=== PATIENT | male | born 2000 | race Caucasian/White ===

== ENCOUNTER 2024-06-17 11:30 | Outpatient (RCR) | payer OTHER, SELFPAY ==
--- NOTE | 2024-03-18 14:03 | OT.OP.EVAL ---
Visit Care Team Role Provider Type James Gaffney Attending Provider Non-Staff Family Provider Primary Care Provider Referring Provider Specialty: Medical Address: [address] [place] [address], [place], [address] Email: Occupational Therapy Initial Evaluation OT Outpatient Adult Evaluation Start: 03/18/24 13:32 Freq: Status: Active Protocol: Document 03/18/24 13:33 FER (Rec: 03/18/24 14:01 FER [id number]) General Information - Adult Visit Number 08/25 Plan of Care Dates 03/18/24 - 05/27/24 Insurance Information [facility] 12 visits Visit Start Date 03/18/24 Visit Start Time 10:40 Visit Stop Time 11:30 Treatment Setting Outpatient Care Note Type Initial Evaluation Referring Physician James Gaffney Reason for Referral 2nd digit extensor indicis tendinopathy, R wrist pain Identification Confirmed Yes Identification Confirmed By name Patient Questionnaires Quick Dash UE Score 11.36 Quick Dash UE Impairment 1 to 19% Impaired (Score 1-19) Quick Dash W&S Score work 12.5, sport/art 31.25 Quick Dash Work and Sport Impairment 20 to 39% Impaired (Score 20- 39) Goals Objective Measurements B wrist/forearm strength 5/5 statistical clerk strength: L 110, 100, 101 (avg 103.7#); R 110, 100, 106 (105.3# avg) pincer: L 6#, R 11 # R: DRUJ ballottement test +; DRUJ shift test pronation and supination -; ulnar snuff box test +; LT ballottement + Short Term Goals 1. Pt will be I with RICE. 2. Pt will report pain following tx at no more than 4 /10 3. Pt will increase R dominant statistical clerk strength by 5#. 4. Pt will report improvement in QuickDash sports/performing of at least 5 point improvement. Group Home Goals 1. Pt will demonstrate full flexion of L index finger without increase in c/o pain. 2. Pt will being to play his guitar for 30 minutes without increased pain. 3. Pt will report pain at 2/10 or less with activity. 4. Pt will be I with HEP Assessment/Plan Patient Response Excellent Rehabilitation Potential Excellent Impairments Identified Body Mechanics,Flexibility, Functional Activities,Pain, Weakness,Range of Motion, Stiffness,Swelling,Soft Tissue Mobility Treatment Assessment Pt is 23 yo M with c/o R writ pain and L index finger pain ( see scanned pain assessment body diagram). Pt rates pain at 5/10 at worse and 1/10 at rest. Pt f/x both bones of his R distal forearm approximately 15 years ago, but has no other significant Pmhx. Pt was casted following fx and had no additional treatment following. Pt reports over the last two years he?s had more pain in R wrist. Pt reports occasionally he has a popping with wrist extension that is painful. He has crepitation with R wrist circumduction. Pt has a R wrist brace that he wears when he is working out or when his wrist is bothering him. Pt reports that his left index finger hurts all the time ?though the amount varies significantly? . Pt?s pain is in 2nd digit MP and extends distally toward PIP. Pt reports his finger ?locks? in somewhat extended position (not in flexed position). 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 He is able to keep his wrists neutral but reports that he is not able to modify his work space. Pt is R hand dominant. Pt is unable to play his guitar for more than 10-15 minutes without pain and reports being limited at working on his car due to pain with twisting and pressure. Pt is tender on palpation of the tendon of extensor indicis muscle as well as passive flexion of L index finger. Pt keeps his L index finger guarded throughout evaluation. See objective measures above for R wrist special tests. Pt presents with instability of the DRUJ of R dominant wrist. Pt has to braces at home and has agreed to bring them to first treatment for recommendations. OT also recommended splinting for L index finger. Splinting options discussed in detail. Pt verbalizes understanding. Skilled OT services are appropriate to address pt deficits, promoting return to pain free functional use, educated on RICE, recommend activity modification, and provide appropriate ther ex/ act. Length of treatment (weeks) 10 Plan of Care Start Date 03/18/24 Plan of Care End Date 05/27/24 Treatment Frequency Once a Week Treatment Duration 45 Minutes Therapeutic Contents Active Range of Motion,Client Education,Functional Activities,Home Exercise Program,Joint Protection, Manual Therapy,Education, Neuromuscular Re-Education, Therapeutic Activities, Therapeutic Exercises, Modalities Modalities As Needed Types of Modalities Contrast Bath Additional Types of Modalities MHP/CP Patient Instruction Home Exercise Program
--- NOTE | 2024-03-25 12:41 | OT.OP.TRT ---
Visit Care Team Role Provider Type James Gaffney Attending Provider Non-Staff Family Provider Primary Care Provider Referring Provider Specialty: Medical Address: [address] [place] [address], [place], [address] Email: Occupational Therapy Treatment Note OT Outpatient Treatment Note - Adult Start: 03/18/24 13:32 Freq: Status: Active Protocol: Document 03/25/24 11:15 FER (Rec: 03/25/24 09:36 FER [id number]) OT Outpatient Adult Treatment Note Session Time Visit Start Date 03/25/24 Visit Start Time 11:15 Visit Stop Time 12:00 Visit Information Visit Number 09/25 Plan of Care Dates 03/18/24 - 05/27/24 Insurance Information [facility] 12 visits Setting Treatment Setting Outpatient Care Visit Type Note Type Treatment Note - Subjective Identification Type Name Identification Reconciled With Medical Record Chief Complaint(s) Loss of Motion/Stiffness,Pain Effect on Activity - Objective Objective Measurements Pt reports that he ordered compression gloves. He reports that they have been helping and allowing him to type. He also reports that he has been trying to rest his hands to allow for healing, and has overall noticed less pain since doing so. Pt reports that his x-ray showed his R ulna is shorter. Short Term Goals 1. Pt will be I with RICE. 2. Pt will report pain following tx at no more than 4 /10 3. 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 4. Pt will report improvement in QuickDash sports/performing of at least 5 point improvement. Retirement Goals 1. Pt will demonstrate full flexion of L index finger without increase in c/o pain. 2. Pt will being to play his guitar for 30 minutes without increased pain. 3. Pt will report pain at 2/10 or less with activity. 4. Pt will be I with HEP - Exercises 2 Descriptor isometric: R wrist pronation 5 second holds x10 reps R wrist flexion 5 second holds x 10 reps R wrist ulnar deviation 5 second holds x10 reps 1 Descriptor tendon glides L hand x15 reps, with min vc/demonstration Manual Therapy Manual Therapy transverse friction massage L extensor indicis to tolerance grade III joint traction mobilization L index MP/PIP/ DIP for flex and extension - Assessment Patient Response to Treatment Excellent Rehabilitation Potential Excellent Impairments Identified Body Mechanics,Flexibility, Functional Activities,Pain, Weakness,Range of Motion, Stiffness,Swelling,Soft Tissue Mobility Assessment of Improvement Pt c/o stiffness and discomfort with L digit composite flexion, following transverse massage, so OT initiated joint mobilization. Pt was then able to complete full flexion and extesnion of L 3rd digit without any complaints of stiffness or discomfort. Pt tolerated transverse massage well as well. Pt requires min vc/ demonstration to perform tendon glides smoothly. Pt forgot to bring in his R wrist braces, OT has asked pt to bring to next treatment. OT educated pt on use of isometric exercises to assist in approximating the DRUJ. Pt performs with min vcs/tcs to perform with correct form. OT will continue to review these and eventually issue them as HEP. Pt continues to be appropriate for skilled OT services per established POC. Reviewed with Patient/Caregiver Goals,Progress Being Made Patient/Caregiver Understanding Excellent - Plan Therapy Recommendations Continue with Current Program Amount of Therapy Recommended 2-3 Months Frequency of Treatment Once a Week Therapeutic Contents Active Range of Motion,Client Education,Functional Activities,Home Exercise Program,Joint Protection, Manual Therapy,Education, Neuromuscular Re-Education, Therapeutic Activities, Therapeutic Exercises, Modalities Types of Modalities Contrast Bath Additional Types of Modalities MHP/CP
--- NOTE | 2024-04-01 12:32 | OT.OP.TRT ---
Visit Care Team Role Provider Type James Gaffney Attending Provider Non-Staff Family Provider Primary Care Provider Referring Provider Specialty: Medical Address: [address] [place] [address], [place], [address] Email: Occupational Therapy Treatment Note OT Outpatient Treatment Note - Adult Start: 03/18/24 13:32 Freq: Status: Active Protocol: Document 04/01/24 11:35 FER (Rec: 04/01/24 12:32 FER [id number]) OT Outpatient Adult Treatment Note Session Time Visit Start Date 04/01/24 Visit Start Time 11:25 Visit Stop Time 12:10 - Subjective Identification Type Name Identification Reconciled With Medical Record Observations ?I don?t have pain in my finger, it?s just a burning sensation.? Pt reports that his x-ray on 02/26 showed Negative ulnar variant and dorsal angulation Chief Complaint(s) Loss of Motion/Stiffness,Pain Effect on Activity - Objective Short Term Goals 1. Pt will be I with RICE. MET 04/01/24 2. Pt will report pain following tx at no more than 4 /10 3. Pt will increase R dominant microbiology quality control technician strength by 5#. 4. Pt will report improvement in QuickDash sports/performing of at least 5 point improvement. Retirement Goals 1. Pt will demonstrate full flexion of L index finger without increase in c/o pain. 2. Pt will being to play his guitar for 30 minutes without increased pain. 3. Pt will report pain at 2/10 or less with activity. 4. Pt will be I with HEP - Exercises 5 Descriptor digit blocking: L MP, PIP, DIP flexion and extension x10 each position 4 Descriptor digit extension with green web x30 3 Descriptor free weight 3# wrist flexion x10 2 Descriptor isometric: R wrist pronation 5 second holds x10 reps R wrist flexion 5 second holds x 10 reps R wrist ulnar deviation 5 secon holds x10 reps 1 Descriptor tendon glides L hand x15 reps, with min vc/demonstration Manual Therapy Manual Therapy transverse friction massage L extensor indicis to tolerance grade III joint traction mobilization L index MP/PIP/ DIP for flex and extension - Assessment Patient Response to Treatment Excellent Rehabilitation Potential Excellent Impairments Identified Body Mechanics,Flexibility, Functional Activities,Pain, Weakness,Range of Motion, Stiffness,Swelling,Soft Tissue Mobility Assessment of Improvement Pt brought his store bought wrist brace in for OT to view. OT recommended that pt order a wrist widget instead. OT recommends a wear schedule of daily for at least 6 weeks, to allow his ligaments time to tighten (due to + DRUJ ballottement test). Pt verbalizes understanding. Pt has bought a splint for his L hand, but has not been wearing it because it is difficult during his work. OT recommended pt trying to wear at night. Pt is wearing a compression glove during work and reports that it is helping . Pt with visible muscle shaking and fatigue with L index composite flexion following digit blocking. Pt continues to be appropriate per skilled OT services. Cont per established POC. Reviewed with Patient/Caregiver Goals,Progress Being Made Patient/Caregiver Understanding Excellent - Plan Therapy Recommendations Continue with Current Program Amount of Therapy Recommended 2-3 Months Frequency of Treatment Once a Week Therapeutic Contents Active Range of Motion,Client Education,Functional Activities,Home Exercise Program,Joint Protection, Manual Therapy,Education, Neuromuscular Re-Education, Therapeutic Activities, Therapeutic Exercises, Modalities Types of Modalities Contrast Bath Additional Types of Modalities MHP/CP
--- NOTE | 2024-04-08 12:20 | OT.OP.TRT ---
Visit Care Team Role Provider Type James Gaffney Attending Provider Non-Staff Family Provider Primary Care Provider Referring Provider Specialty: Medical Address: [address] [place] [address], [place], [address] Email: Occupational Therapy Treatment Note OT Outpatient Treatment Note - Adult Start: 03/18/24 13:32 Freq: Status: Active Protocol: Document 04/08/24 11:21 FER (Rec: 04/08/24 11:22 FER [id number]) OT Outpatient Adult Treatment Note Session Time Visit Start Date 04/08/24 Visit Start Time 11:21 Visit Stop Time 12:10 Visit Information Visit Number 11/23 Plan of Care Dates 03/18/24 - 05/27/24 Insurance Information [facility] 12 visits Setting Treatment Setting Outpatient Care Visit Type Note Type Treatment Note - Subjective Identification Type Name Identification Reconciled With Medical Record Observations Pt reports that he was very sore the day following last tx . Pt ordered a wrist widget, but found it uncomfortable. He is now wearing a bullseye style brace. Pt reports c/o stiffness in L index finger and increased wrist popping on R side since wearing wrist brace. Chief Complaint(s) Loss of Motion/Stiffness,Pain Effect on Activity - Objective Short Term Goals 1. Pt will be I with RICE. MET 04/01/24 2. Pt will report pain following tx at no more than 4 /10 MET 04/08/24 3. Pt will increase R dominant designer/writer strength by 5#. 4. Pt will report improvement in QuickDash sports/performing of at least 5 point improvement. [employer] Assembly Machine Tender Goals 1. Pt will demonstrate full flexion of L index finger without increase in c/o pain. 2. Pt will being to play his guitar for 30 minutes without increased pain. 3. Pt will report pain at 2/10 or less with activity. 4. Pt will be I with HEP - Exercises 5 Descriptor digit blocking: L MP, PIP, DIP flexion and extension x15 each position 4 Descriptor digit extension with green web x30 [place] 3 Descriptor R: free weight 3# x15: wrist flexion (neutral position) wrist extension wrist radial and ulnar deviation pronation 2 Descriptor isometric: R wrist pronation 5 second holds x10 reps R wrist flexion 5 second holds x 10 reps R wrist ulnar deviation 5 secon holds x10 reps 1 Descriptor tendon glides L hand x15 reps; no vcs necessary Manual Therapy Manual Therapy transverse friction massage L extensor indicis to tolerance grade III joint traction mobilization L index MP/PIP/ DIP for flex and extension - Assessment Patient Response to Treatment Excellent Rehabilitation Potential Excellent Impairments Identified Body Mechanics,Flexibility, Functional Activities,Pain, Weakness,Range of Motion, Stiffness,Swelling,Soft Tissue Mobility Progress Towards Goals Good Progress Assessment of Overall Progress Improving Assessment of Improvement OT discussed wrist brace wearing schedule. OT recommends wearing all the time, loosening at night, for at least 6 weeks to promote approximation of laxity present during DRUJ assessment . Pt verbalizes understanding. Pt tolerated increased strengthening on R side with use of free weights, positioning chosen based on avoiding pts symptoms especially popping. Pt reports L finger feeling less stiff following joint mobilization. Pt has met STG #2 and promotes progress toward remaining goals. Cont per established POC. Reviewed with Patient/Caregiver Progress Being Made - Plan Therapy Recommendations Continue with Current Program Amount of Therapy Recommended 2-3 Months Frequency of Treatment Once a Week Length of Session 45 Minutes Therapeutic Contents Active Range of Motion,Client Education,Functional Activities,Home Exercise Program,Joint Protection, Manual Therapy,Education, Neuromuscular Re-Education, Therapeutic Activities, Therapeutic Exercises, Modalities Types of Modalities Contrast Bath Additional Types of Modalities MHP/CP
--- NOTE | 2024-05-06 12:20 | OT.OP.TRT ---
Visit Care Team Role Provider Type James Gaffney Attending Provider Non-Staff Family Provider Primary Care Provider Referring Provider Specialty: Medical Address: [address] [place] [address], [place], [address] Email: Occupational Therapy Treatment Note OT Outpatient Treatment Note - Adult Start: 03/18/24 13:32 Freq: Status: Active Protocol: Document 05/06/24 12:09 LELESAMUEL (Rec: 05/06/24 12:20 [email or web address] [id number]) OT Outpatient Adult Treatment Note Session Time Visit Start Date 05/06/24 Visit Start Time 10:45 Visit Stop Time 11:30 Visit Information Visit Number 12/23 Plan of Care Dates 03/18/24 - 05/27/24 Insurance Information [facility] 12 visits Setting Treatment Setting Outpatient Care Visit Type Note Type Treatment Note - Subjective Identification Type Name Identification Reconciled With Medical Record Observations Pt reports that his L hand has been fine. A time or two it got where it felt stiffer, but I just stopped what I was doing. Pt reports that his R wrist has only bothered me 1 or 2 days in the last month. He has been consistently wearing bulls eye styled brace on his R wrist for 4 weeks and will continue for at least two more weeks per OT recommendation. Pt reports that the popping is occurring less often but now seems to build up and be one larger pop. Pt reports that he is no longer having pain on his R index finger. Pt has not tried playing his guitar in the last month. Chief Complaint(s) Loss of Motion/Stiffness,Pain Effect on Activity - Objective Short Term Goals 1. Pt will be I with RICE. MET 04/01/24 2. Pt will report pain following tx at no more than 4 /10 MET 04/08/24 3. 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 4. Pt will report improvement in QuickDash sports/performing of at least 5 point improvement. Computer Support Technician Goals 1. Pt will demonstrate full flexion of L index finger without increase in c/o pain. MET 05/06/24 2. Pt will being to play his guitar for 30 minutes without increased pain. 3. Pt will report pain at 2/10 or less with activity. MET 9/ 23/24 4. Pt will be I with HEP - Exercises 6 Descriptor isometric: L index MP, PIP, and DIP isolated extension at each joint for 3-5 second holds x10 reps each. 5 Descriptor digit blocking: L MP, PIP, DIP flexion and extension x15 each position 4 Descriptor digit extension with green web x30 [place] 3 Descriptor R: free weight 3# 10x2 each: wrist flexion (neutral position) wrist extension wrist radial and ulnar deviation pronation Manual Therapy Manual Therapy grade III joint traction mobilization L index MP/PIP/ DIP for flex and extension - Assessment Patient Response to Treatment Excellent Rehabilitation Potential Excellent Impairments Identified Body Mechanics,Flexibility, Functional Activities,Pain, Weakness,Range of Motion, Stiffness,Swelling,Soft Tissue Mobility Progress Towards Goals Good Progress Assessment of Overall Progress Improving Assessment of Improvement Pt tolerates addition of isometrics for L index without any complaints of pain or stiffness. Pt tolerated maira additional set of strengthening on R side with use of free weights, positioning chosen based on avoiding pts symptoms especially popping. Pt continues to report L finger feeling less stiff following joint mobilization. Pt has met LTG #1 and 3 and promotes progress toward remaining goals. Cont per established POC. Reviewed with Patient/Caregiver Progress Being Made Patient/Caregiver Understanding Excellent - Plan Therapy Recommendations Continue with Current Program Amount of Therapy Recommended 2-3 Months Frequency of Treatment Once a Week Length of Session 45 Minutes Therapeutic Contents Active Range of Motion,Client Education,Functional Activities,Home Exercise Program,Joint Protection, Manual Therapy,Education, Neuromuscular Re-Education, Therapeutic Activities, Therapeutic Exercises, Modalities Types of Modalities Contrast Bath Additional Types of Modalities MHP/CP
--- NOTE | 2024-05-20 08:15 | OT.OP.TRT ---
Visit Care Team Role Provider Type James Gaffney Attending Provider Non-Staff Family Provider Primary Care Provider Referring Provider Specialty: Medical Address: [address] [place] [address], [place], [address] Email: Occupational Therapy Treatment Note OT Outpatient Treatment Note - Adult Start: 03/18/24 13:32 Freq: Status: Active Protocol: Document 05/20/24 07:30 FER (Rec: 05/20/24 07:29 FER [id number]) OT Outpatient Adult Treatment Note Session Time Visit Start Date 05/20/24 Visit Start Time 07:30 Visit Stop Time 08:13 Visit Information Visit Number 01/23 Plan of Care Dates 03/18/24 - 05/27/24 Insurance Information [facility] 12 visits Setting Treatment Setting Outpatient Care Visit Type Note Type Treatment Note - Subjective Identification Type Name Identification Reconciled With Medical Record Observations Pt reports that his index finger has not been stiff since last treatment. He reports his R wrist has been sore, but otherwise no complaints. Pt reports that he played his guitar for about 10 minutes and did not notice any difficutly with respect to his L index finger and his R wrist. He reports that he is out of practice. Chief Complaint(s) Loss of Motion/Stiffness,Pain Effect on Activity - Objective Objective Measurements pincer: L 11# R 12# Short Term Goals 1. Pt will be I with RICE. MET 04/01/24 2. Pt will report pain following tx at no more than 4 /10 MET 04/08/24 3. Pt will increase R dominant senior attorney strength by 5#. 4. Pt will report improvement in QuickDash sports/performing of at least 5 point improvement. Detention Goals 1. Pt will demonstrate full flexion of L index finger without increase in c/o pain. MET 05/06/24 2. Pt will being to play his guitar for 30 minutes without increased pain. 3. Pt will report pain at 2/10 or less with activity. MET 4. Pt will be I with HEP - Treatment 1 Descriptor proprioception: wiffle ball with marbles L CW and CCW x30sec each flex bar (yellow) wobble R 60 seconds Exercises 7 Descriptor towel gather and extending x10 6 Descriptor isometric: L index MP, PIP, and DIP isolated extension at each joint for 3-5 second holds x10 reps each. 5 Descriptor digit blocking: L MP, PIP, DIP flexion and extension x15 each position 4 Descriptor digit extension with green web x30 [place] 3 Descriptor R: free weight 4# 10x2 each: wrist flexion wrist extension wrist radial and ulnar deviation pronation Manual Therapy Manual Therapy grade III joint traction mobilization L index MP/PIP/ DIP for flex and extension - Assessment Patient Response to Treatment Excellent Rehabilitation Potential Excellent Impairments Identified Body Mechanics,Flexibility, Functional Activities,Pain, Weakness,Range of Motion, Stiffness,Swelling,Soft Tissue Mobility Progress Towards Goals Good Progress Assessment of Overall Progress Improving Assessment of Improvement Pt tolerated increase in weight for R wrist strengthening and addition of focused ROM with L hand towel activity as well as introduction of proprioceptive feedback today. Pt denies any pain complaints during tx and reports mild stiffness in L index finger. Pt demonstrates increased pinch strength on L index. Pt makes progress toward LTG #2. Cont per established POC. Reviewed with Patient/Caregiver Progress Being Made Patient/Caregiver Understanding Excellent - Plan Therapy Recommendations Continue with Current Program Amount of Therapy Recommended 2-3 Months Frequency of Treatment Once a Week Length of Session 45 Minutes Therapeutic Contents Active Range of Motion,Client Education,Functional Activities,Home Exercise Program,Joint Protection, Manual Therapy,Education, Neuromuscular Re-Education, Therapeutic Activities, Therapeutic Exercises, Modalities Types of Modalities Contrast Bath Additional Types of Modalities MHP/CP
--- NOTE | 2024-05-27 12:41 | OT.OP.TRT ---
Visit Care Team Role Provider Type James Gaffney Attending Provider Non-Staff Family Provider Primary Care Provider Referring Provider Specialty: Medical Address: [address] [place] [address], [place], [address] Email: Occupational Therapy Treatment Note OT Outpatient Treatment Note - Adult Start: 03/18/24 13:32 Freq: Status: Active Protocol: Document 05/27/24 11:19 FER (Rec: 05/27/24 12:41 FER [id number]) OT Outpatient Adult Treatment Note Session Time Visit Start Date 05/27/24 Visit Start Time 11:15 Visit Stop Time 12:00 Visit Information Visit Number 02/22 Plan of Care Dates 03/18/24 - 05/27/24 Insurance Information [facility] 12 visits Setting Treatment Setting Outpatient Care Visit Type Note Type Treatment Note - Subjective Identification Type Name Identification Reconciled With Medical Record Observations Pt reports that he was doing some task, that he doesn't remember, and he felt as though he wasn't able to use his L index finger and had to force it. Pt reported that this was painful and he stopped the activity when he could, but he was at work so he had some limitation there. Pt took off his bulls-eye splint due to six weeks of wearing schedule approximately last Monday. Pt reports he's had increased soreness/ pain in R wrist since d/c. Chief Complaint(s) Loss of Motion/Stiffness,Pain Effect on Activity - Objective Objective Measurements DRUJ R ballottement test + Short Term Goals 1. Pt will be I with RICE. MET 04/01/24 2. Pt will report pain following tx at no more than 4 /10 MET 04/08/24 3. 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 4. Pt will report improvement in QuickDash sports/performing of at least 5 point improvement. Longterm Goals 1. Pt will demonstrate full flexion of L index finger without increase in c/o pain. MET 05/06/24 2. Pt will being to play his guitar for 30 minutes without increased pain. 3. Pt will report pain at 2/10 or less with activity. MET 4. Pt will be I with HEP - Exercises 7 Descriptor towel gather and extending x10 6 Descriptor isometric: L index MP, PIP, and DIP isolated extension at each joint for 3-5 second holds x10 reps each. 5 Descriptor digit blocking: L MP, PIP, DIP flexion and extension x15 each position 3 Descriptor R: free weight 4# 10x; 3# x10x each: wrist flexion wrist extension wrist radial and ulnar deviation pronation/supination farmers carry 5# x 60 seconds Manual Therapy Manual Therapy grade III joint traction mobilization L index MP/PIP/ DIP for flex and extension - Assessment Patient Response to Treatment Excellent Rehabilitation Potential Excellent Impairments Identified Body Mechanics,Flexibility, Functional Activities,Pain, Weakness,Range of Motion, Stiffness,Swelling,Soft Tissue Mobility Progress Towards Goals Good Progress Assessment of Overall Progress Improving Assessment of Improvement Pt has no change with respect to DRUJ instability following 6 week application of bullseye brace. Pt reports decreased popping and pain with wearing brace, but continued constant wearing will lead to weakness. Because of this, OT suggested that pt reapply bullseye brace during work tasks and working out and to remove it at rest and during sleep for now. Pt verbalizes understanding. Pt tolerated R wrist weighted activities without brace on today (pt did not have it with him) but weight was decreased for second set due to pt feeling sore. Pt tolerated index strengthening well today but with reports of fatigue following. OT assures pt that this is to be expected. Cont per established POC. Reviewed with Patient/Caregiver Progress Being Made Patient/Caregiver Understanding Excellent - Plan Therapy Recommendations Continue with Current Program Amount of Therapy Recommended 2-3 Months Frequency of Treatment Once a Week Length of Session 45 Minutes Therapeutic Contents Active Range of Motion,Client Education,Functional Activities,Home Exercise Program,Joint Protection, Manual Therapy,Education, Neuromuscular Re-Education, Therapeutic Activities, Therapeutic Exercises, Modalities Types of Modalities Contrast Bath Additional Types of Modalities MHP/CP
--- NOTE | 2024-06-03 12:48 | OT.OPPN ---
Current Diagnoses Pain in right wrist (06/03/24) Pain in left finger(s) (06/03/24) OT Progress Note OT Outpatient Treatment Note - Adult Start: 03/18/24 13:32 Freq: Status: Active Protocol: Document 06/03/24 11:18 FER (Rec: 06/03/24 12:01 FER [id number]) OT Outpatient Adult Treatment Note Session Time Visit Start Date 06/03/24 Visit Start Time 11:15 Visit Stop Time 12:00 Visit Information Visit Number 03/25 Plan of Care Dates 03/18/24 - 05/27/24 Insurance Information [facility] 12 visits Setting Treatment Setting Outpatient Care Visit Type Note Type Treatment Note - Subjective Identification Type Name Identification Reconciled With Medical Record Observations Pt reports that his L index finger has done fine this last week. He does not recall any instances of having to force. Pt reports that he is wearing his bullseye spint during work (approximatley 12 hours). Pt reports that his wrist feels like it is always on the verge of popping. Chief Complaint(s) Loss of Motion/Stiffness,Pain Effect on Activity - Objective Short Term Goals 1. Pt will be I with RICE. MET 04/01/24 2. Pt will report pain following tx at no more than 4 /10 MET 04/08/24 3. 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 4. Pt will report improvement in QuickDash sports/performing of at least 5 point improvement. Half-Way Goals 1. Pt will demonstrate full flexion of L index finger without increase in c/o pain. MET 05/06/24 2. Pt will being to play his guitar for 30 minutes without increased pain. 3. Pt will report pain at 2/10 or less with activity. MET 4. Pt will be I with HEP - Exercises 7 Descriptor towel gather and extending x10 6 Descriptor isometric: composite index flexion into extension hook position into extension 1st DI x10 each 4 Descriptor digit extension with blue web x30 [place] 3 Descriptor R: free weight 4# 10x2 each: wrist flexion wrist extension wrist radial and ulnar deviation pronation/supination isometric weight hold in pronation 30 sec x2 isometric weight hold in supination 30 sec x2 farmers carry 5# x 60 seconds - Assessment Patient Response to Treatment Excellent Rehabilitation Potential Excellent Impairments Identified Body Mechanics,Flexibility, Functional Activities,Pain, Weakness,Range of Motion, Stiffness,Swelling,Soft Tissue Mobility Progress Towards Goals Good Progress Assessment of Overall Progress Improving Reviewed with Patient/Caregiver Progress Being Made Patient/Caregiver Understanding Excellent - Plan Therapy Recommendations Continue with Current Program Amount of Therapy Recommended 2-3 Months Frequency of Treatment Once a Week Length of Session 45 Minutes Therapeutic Contents Active Range of Motion,Client Education,Functional Activities,Home Exercise Program,Joint Protection, Manual Therapy,Education, Neuromuscular Re-Education, Therapeutic Activities, Therapeutic Exercises, Modalities Types of Modalities Contrast Bath Additional Types of Modalities MHP/CP If you are in agreement with this Plan of Care, please return a signed and dated copy. I have reviewed this Plan of Care and certify that the skilled therapy services above are required to meet the patient?s needs. Physician Signature Date Printed Name and Credentials Clinical Instructor Signature Printed Name and Credentials
--- NOTE | 2024-06-03 12:55 | OT.OP.TRT ---
Visit Care Team Role Provider Type James Gaffney Attending Provider Non-Staff Family Provider Primary Care Provider Referring Provider Specialty: Medical Address: [address] [place] [address], [facility], [place], [address] Email: Occupational Therapy Treatment Note OT Outpatient Treatment Note - Adult Start: 03/18/24 13:32 Freq: Status: Active Protocol: Document 06/03/24 11:18 FER (Rec: 06/03/24 12:01 FER [id number]) OT Outpatient Adult Treatment Note Session Time Visit Start Date 06/03/24 Visit Start Time 11:15 Visit Stop Time 12:00 Visit Information Visit Number 03/25 Plan of Care Dates 03/18/24 - 05/27/24 Insurance Information [facility] 12 visits Setting Treatment Setting Outpatient Care Visit Type Note Type Treatment Note - Subjective Identification Type Name Identification Reconciled With Medical Record Observations Pt reports that his L index finger has done fine this last week. He does not recall any instances of having to force. Pt reports that he is wearing his bullseye spint during work ([employer] 12 hours). Pt reports that his wrist feels like it is always on the verge of popping. Pt reports that he helped a friend move this weekend and had no pain with either hand/ wrist during this task. Chief Complaint(s) Loss of Motion/Stiffness,Pain Effect on Activity - Objective Short Term Goals 1. Pt will be I with RICE. MET 04/01/24 2. Pt will report pain following tx at no more than 4 /10 MET 04/08/24 3. 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 4. Pt will report improvement in QuickDash sports/performing of at least 5 point improvement. Real Estate Recruiter Goals 1. Pt will demonstrate full flexion of L index finger without increase in c/o pain. MET 05/06/24 2. Pt will being to play his guitar for 30 minutes without increased pain. 3. Pt will report pain at 2/10 or less with activity. MET 4. Pt will be I with HEP - Exercises 7 Descriptor towel gather and extending x10 6 Descriptor isometric: composite index flexion into extension hook position into extension 1st DI x10 each 4 Descriptor digit extension with blue web x30 [place] 3 Descriptor R: free weight 4# 10x2 each: wrist flexion wrist extension wrist radial and ulnar deviation pronation/supination isometric weight hold in pronation 30 sec x2 isometric weight hold in supination 30 sec x2 farmers carry 5# x 60 seconds - Assessment Patient Response to Treatment Excellent Rehabilitation Potential Excellent Impairments Identified Body Mechanics,Flexibility, Functional Activities,Pain, Weakness,Range of Motion, Stiffness,Swelling,Soft Tissue Mobility Progress Towards Goals Good Progress Assessment of Overall Progress Improving Assessment of Improvement Pt tolerated increased resistance exercises today for both UEs without increase in symptoms or complaints of pain . Pt continues to have popping throughout tx session, but he reports that he has always popped like this. Pt with apparent laxities. Pt continues to make progress toward established goals, cont per POC. Reviewed with Patient/Caregiver Progress Being Made Patient/Caregiver Understanding Excellent - Plan Therapy Recommendations Continue with Current Program Amount of Therapy Recommended 2-3 Months Frequency of Treatment Once a Week Length of Session 45 Minutes Therapeutic Contents Active Range of Motion,Client Education,Functional Activities,Home Exercise Program,Joint Protection, Manual Therapy,Education, Neuromuscular Re-Education, Therapeutic Activities, Therapeutic Exercises, Modalities Types of Modalities Contrast Bath Additional Types of Modalities MHP/CP
--- NOTE | 2024-06-10 12:40 | OT.OP.TRT ---
Visit Care Team Role Provider Type James Gaffney Attending Provider Non-Staff Family Provider Primary Care Provider Referring Provider Specialty: Medical Address: [address] [place] [address], [place], [address] Email: Occupational Therapy Treatment Note OT Outpatient Treatment Note - Adult Start: 03/18/24 13:32 Freq: Status: Active Protocol: Document 06/10/24 11:18 FER (Rec: 06/10/24 12:00 FER [id number]) OT Outpatient Adult Treatment Note Session Time Visit Start Date 06/10/24 Visit Start Time 11:15 Visit Stop Time 12:00 Visit Information Visit Number 04/25 Plan of Care Dates 03/18/24 - 05/27/24 Insurance Information [facility] 12 visits Setting Treatment Setting Outpatient Care Visit Type Note Type Treatment Note - Subjective Identification Type Name Identification Reconciled With Medical Record Observations I did play a little bit, I wouldn't say there was anything inhibiting about it other than time constraints with respect to guitar playing . Pt reports 20-30 minutes of playing. Pt is continuing to wear the bulls eye splint at work and leaving it off at home. I don't think it bothered me this week at all. Chief Complaint(s) Loss of Motion/Stiffness,Pain Effect on Activity - Objective Objective Measurements R 95#, 110#, 110# (avg 105#) L 135#, 120#, 119# (avg 124.7# ) QuickDash 2.3 QuickDash Work 0 QuickDash Sport 0 Short Term Goals 1. Pt will be I with RICE. MET 04/01/24 2. Pt will report pain following tx at no more than 4 /10 MET 04/08/24 3. 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 4. Pt will report improvement in QuickDash sports/performing of at least 5 point improvement. MET 06/10/24 [facility] Goals 1. Pt will demonstrate full flexion of L index finger without increase in c/o pain. MET 05/06/24 2. Pt will being to play his guitar for 30 minutes without increased pain. MET 06/10/24 3. Pt will report pain at 2/10 or less with activity. MET 4. Pt will be I with HEP - Exercises 6 Descriptor strengthening: L red tputty: digit extension with ring shape digit extension flat mass on table digit abd 2nd and 3rd digits digit add 2nd and 3rd digits 3 Descriptor R: free weight 4# 10x each, 5# x10 each wrist flexion wrist extension wrist radial and ulnar deviation pronation/supination isometric weight hold in supination 30 seconds isometric weight hold in pronation 30 seconds - Assessment Patient Response to Treatment Excellent Rehabilitation Potential Excellent Impairments Identified Body Mechanics,Flexibility, Functional Activities,Pain, Weakness,Range of Motion, Stiffness,Swelling,Soft Tissue Mobility Progress Towards Goals Good Progress Assessment of Overall Progress Improving Assessment of Improvement Pt reports significant improvements with respect to functional use of B hands, this is further supported by improvements with all QuickDash. Pt has met STG #4. Pt issued tputty HEP for use with L hand. OT will reassess pt's I with this next tx. Pt has met LTG#2, reporting playing the guitar without any difficulty or pain. Cont per established POC. Reviewed with Patient/Caregiver Progress Being Made Patient/Caregiver Understanding Excellent - Plan Therapy Recommendations Continue with Current Program Amount of Therapy Recommended 2-3 Months Frequency of Treatment Once a Week Length of Session 45 Minutes Therapeutic Contents Active Range of Motion,Client Education,Functional Activities,Home Exercise Program,Joint Protection, Manual Therapy,Education, Neuromuscular Re-Education, Therapeutic Activities, Therapeutic Exercises, Modalities Types of Modalities Contrast Bath Additional Types of Modalities MHP/CP
--- NOTE | 2024-06-17 12:59 | OT.OP.TRT ---
Visit Care Team Role Provider Type James Gaffney Attending Provider Non-Staff Family Provider Primary Care Provider Referring Provider Specialty: Medical Address: [address] [place] [address], [place], [address] Email: Occupational Therapy Treatment Note OT Outpatient Treatment Note - Adult Start: 03/18/24 13:32 Freq: Status: Active Protocol: Document 06/17/24 11:38 FER (Rec: 06/17/24 12:59 FER [id number]) OT Outpatient Adult Treatment Note Session Time Visit Start Date 06/17/24 Visit Start Time 11:35 Visit Stop Time 12:20 Visit Information Visit Number 05/25 Plan of Care Dates 03/18/24 - 05/27/24 Insurance Information [facility] 12 visits Setting Treatment Setting Outpatient Care Visit Type Note Type Treatment Note - Subjective Identification Type Name Identification Reconciled With Medical Record Observations Pt reports he had an unusual pop in his R wrist when pinching something. He also reports that the pop was not painful, but that it got his attention. Pt reports he has been performing tputty exercises at home. Chief Complaint(s) Loss of Motion/Stiffness,Pain Effect on Activity - Objective Objective Measurements R 115#, 110#, 112# (avg 112.3# ) L 135#, 120#, 119# (avg 124.7# ) pincer: L 11# R 12# DRUJ R ballottement test + QuickDash 2.3 QuickDash Work 0 QuickDash Sport 0 Short Term Goals 1. Pt will be I with RICE. MET 04/01/24 2. Pt will report pain following tx at no more than 4 /10 MET 04/08/24 3. 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 Met 06/17 4. Pt will report improvement in QuickDash sports/performing of at least 5 point improvement. MET 06/10/24 Half-Way Goals 1. Pt will demonstrate full flexion of L index finger without increase in c/o pain. MET 05/06/24 2. Pt will being to play his guitar for 30 minutes without increased pain. MET 06/10/24 3. Pt will report pain at 2/10 or less with activity. MET 4. Pt will be I with HEP MET 06/17/24 - Exercises 6 Descriptor strengthening: L red tputty: digit extension with ring shape digit extension flat mass on table digit abd 2nd and 3rd digits digit add 2nd and 3rd digits 3 Descriptor R: free weight 5# x10 each wrist flexion wrist extension wrist radial and ulnar deviation pronation/supination isometric weight hold in supination 30 seconds isometric weight hold in pronation 30 seconds - Assessment Patient Response to Treatment Excellent Rehabilitation Potential Excellent Impairments Identified Body Mechanics,Flexibility, Functional Activities,Pain, Weakness,Range of Motion, Stiffness,Swelling,Soft Tissue Mobility Progress Towards Goals Good Progress Assessment of Overall Progress Improving Assessment of Improvement Pt demonstrates I with tputty HEP. Pt demonstrated increased R convention worker strength today and has met all established goals. D/C to HEP. Reviewed with Patient/Caregiver Goals,Progress Being Made,Home Exercise Program Patient/Caregiver Understanding Excellent - Plan Therapy Recommendations Discharge to Home Exercise Program
--- NOTE | 2024-06-17 13:00 | OT.OP.DC ---
Visit Care Team Role Provider Type James Gaffney Attending Provider Non-Staff Family Provider Primary Care Provider Referring Provider Address: [address] [place] [address], [place], [address] Email: OT Outpatient OT Outpatient Adult Evaluation Start: 03/18/24 13:32 Freq: Status: Active Protocol: Document 03/18/24 13:33 FER (Rec: 03/18/24 14:01 FER [id number]) General Information - Adult Visit Information Visit Number [id number] Plan of Care Dates 03/18/24 - 05/27/24 Insurance Information [facility] 12 visits Session Time Visit Start Date 03/18/24 Visit Start Time 10:40 Visit Stop Time 11:30 Setting Treatment Setting Outpatient Care Visit Type Note Type Initial Evaluation Referral Referring Physician James Gaffney Reason for Referral 2nd digit extensor indicis tendinopathy, R wrist pain Identification Identification Confirmed Yes Identification Confirmed By name Patient Questionnaires Quick Dash- Upper Extremity Quick Dash UE Score 11.36 Quick Dash UE Impairment 1 to 19% Impaired (Score 1-19) Quick Dash- Work and Sports Modules Quick Dash W&S Score work 12.5, sport/art 31.25 Quick Dash Work and Sport Impairment 20 to 39% Impaired (Score 20- 39) Goals Objective Measurements Objective Measurements B wrist/forearm strength 5/5 cataloging assistant strength: L 110, 100, 101 (avg 103.7#); R 110, 100, 106 (105.3# avg) pincer: L 6#, R 11 # R: DRUJ ballottement test +; DRUJ shift test pronation and supination -; ulnar snuff box test +; LT ballottement + Short Term Goals Short Term Goals 1. Pt will be I with RICE. 2. Pt will report pain following tx at no more than 4 /10 3. Pt will increase R dominant cataloging assistant strength by 5#. 4. Pt will report improvement in QuickDash sports/performing of at least 5 point improvement. Fpc Goals Wire Spinner Goals 1. Pt will demonstrate full flexion of L index finger without increase in c/o pain. 2. Pt will being to play his guitar for 30 minutes without increased pain. 3. Pt will report pain at 2/10 or less with activity. 4. Pt will be I with HEP Assessment/Plan Assessment Patient Response Excellent Rehabilitation Potential Excellent Impairments Identified Body Mechanics,Flexibility, Functional Activities,Pain, Weakness,Range of Motion, Stiffness,Swelling,Soft Tissue Mobility Treatment Assessment Pt is 23 yo M with c/o R writ pain and L index finger pain ( see scanned pain assessment body diagram). Pt rates pain at 5/10 at worse and 1/10 at rest. Pt f/x both bones of his R distal forearm approximately 15 years ago, but has no other significant Pmhx. Pt was casted following fx and had no additional treatment following. Pt reports over the last two years he?s had more pain in R wrist. Pt reports occasionally he has a popping with wrist extension that is painful. He has crepitation with R wrist circumduction. Pt has a R wrist brace that he wears when he is working out or when his wrist is bothering him. Pt reports that his left index finger hurts all the time ?though the amount varies significantly? . Pt?s pain is in 2nd digit MP and extends distally toward PIP. Pt reports his finger ?locks? in somewhat extended position (not in flexed position). 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 He is able to keep his wrists neutral but reports that he is not able to modify his work space. Pt is R hand dominant. Pt is unable to play his guitar for more than 10-15 minutes without pain and reprots beng limited at working on his car due to pain with twisting and pressure. Pt is tender on palpation of the tendon of extensor indicis muscle as well as passive flexion of L index finger. Pt keeps his L index finger guarded throughout evaluation. See objective measures above for R wrist special tests. Pt presents with instability of the DRUJ of R dominant wrist. Pt has to braces at home and has agreed to bring them to first treatment for recommendations. OT also recommended splinting for L index finger. Splinting options discussed in detail. Pt verbalizes understanding. Skilled OT services are appropriate to address pt deficits, promoting return to pain free functional use, educated on RICE, recommend activity modification, and provide appropriate ther ex/ act. Plan Length of treatment (weeks) 10 Plan of Care Start Date 03/18/24 Plan of Care End Date 05/27/24 Treatment Frequency Once a Week Treatment Duration 45 Minutes Therapeutic Contents Active Range of Motion,Client Education,Functional Activities,Home Exercise Program,Joint Protection, Manual Therapy,Education, Neuromuscular Re-Education, Therapeutic Activities, Therapeutic Exercises, Modalities Modalities As Needed Types of Modalities Contrast Bath Additional Types of Modalities MHP/CP Patient Instruction Home Exercise Program Functional Wrist/Hand Scan Hand Side Sensory Assessment Sensory Profile2 OT Outpatient Treatment Note - Adult Start: 03/18/24 13:32 Freq: Status: Active Protocol: Document 06/17/24 11:38 FER (Rec: 06/17/24 12:59 FER [id number]) OT Outpatient Adult Discharge Note Session Time Visit Start Date 06/17/24 Visit Start Time 11:35 Visit Stop Time 12:20 Visit Information Visit Number [id number] Plan of Care Dates 03/18/24 - 05/27/24 Insurance Information [facility] 12 visits Setting Treatment Setting Outpatient Care Visit Type Note Type Discharge Note - Subjective Identification Type Name Identification Reconciled With Medical Record Observations Pt reports he had an unusual pop in his R wrist when pinching something. He also reports that the pop was not painful, but that it got his attention. Pt reports he has been performing tputty exercises at home. Chief Complaint(s) Loss of Motion/Stiffness,Pain Effect on Activity - Objective Objective Measurements R 115#, 110#, 112# (avg 112.3# ) L 135#, 120#, 119# (avg 124.7# ) pincer: L 11# R 12# DRUJ R ballottement test + QuickDash 2.3 QuickDash Work 0 QuickDash Sport 0 Short Term Goals 1. Pt will be I with RICE. MET 04/01/24 2. Pt will report pain following tx at no more than 4 /10 MET 04/08/24 3. Pt will increase R dominant cataloging assistant strength by 5#. Met 06/17 4. Pt will report improvement in QuickDash sports/performing of at least 5 point improvement. MET 06/10/24 Wire Spinner Goals 1. Pt will demonstrate full flexion of L index finger without increase in c/o pain. MET 05/06/24 2. Pt will being to play his guitar for 30 minutes without increased pain. MET 06/10/24 3. Pt will report pain at 2/10 or less with activity. MET 4. Pt will be I with HEP MET 06/17/24 - Assessment Patient Response to Treatment Excellent Rehabilitation Potential Excellent Impairments Identified Body Mechanics,Flexibility, Functional Activities,Pain, Weakness,Range of Motion, Stiffness,Swelling,Soft Tissue Mobility Progress Towards Goals Good Progress Assessment of Overall Progress Improving Assessment of Improvement Pt has made good progress with skilled OT services with respect to B hands. Pt utilized a bulls eye splint for approximately 6 weeks constantly on the R wrist to attempt to allow approximation of connective tissue associated with +DRUJ ballottement test. This did not prove to increase his stablity after 6 weeks, however, it does provide the pt with enough stability while performing taxing tasks (ex. weight lifting) while reducing popping and discomfort. Pt is I with wrist strengthening for stability at the R wrist. Pt has made good progress with respect to L index finger as well. He now has full pain free ROM and is I with tputty HEP for continued strength and stability. Pt reports rerturn to desired leisure task of playing his guitar and reports improvement in overall perception of function with respect to the QuickDash . See objective section of note for additional details. Pt is appropriate for d/c to HEP at this time. Reviewed with Patient/Caregiver Goals,Progress Being Made,Home Exercise Program Patient/Caregiver Understanding Excellent - Plan Therapy Recommendations Discharge to Home Exercise Program
== END 2024-06-24 14:39 | disposition home or self-care (01) ==
LOC: OT 11:30
DX: M25.531 Pain in right wrist (principal); M79.645 Pain in left finger(s)
CPT/HCPCS: 97110; 97140; 97165